=== PATIENT | female | born 1965 | race Caucasian/White ===

== ENCOUNTER 2018-09-23 23:37 | Inpatient (IN) | payer BC ==
[~2018-09-23] VITALS: Ht 157.5 cm; Wt 104.9 kg
[2018-09-24] VITALS (13 sets, daily range): BP systolic 120–140; BP diastolic 70–89
[2018-09-24] MEDS ORDERED: LEVO150T5 PO (00:01)
[2018-09-24] MEDS ORDERED: SODIUM CHLORIDE FLUSH 10ML SYR IVF ONE (00:30)
[2018-09-24 00:48] LABS: MEAN CORPUSCULAR HEMOGLOBIN 20.3 pg (27.0-34.8); MEAN CORPUSCULAR VOLUME 70.4 fL (80-100); MEAN PLATELET VOLUME 7.8 fL (7.4-10.4); PLATELET COUNT 345 x10^3/uL (130-400); RED BLOOD COUNT 2.83 x10^6/uL (3.82-5.3); RED CELL DISTRIBUTION WIDTH 20.9 % (9.6-15.2)
[2018-09-24 00:50] LABS: MEAN CORPUSCULAR HGB CONC 28.9 g/dL (32.4-35.8)
[2018-09-24 00:51] LABS: ALANINE AMINOTRANSFERASE 50 U/L (12-78); ALBUMIN 3.5 g/dL (3.4-5.0); ANION GAP 5 mmol/L (5-15); CALCIUM 8.3 mg/dL (8.5-10.1); CHLORIDE 106 mmol/L (98-107); CREATININE 0.95 mg/dL (0.55-1.02)
[2018-09-24 00:52] LABS: INTERNATIONAL NORMALIZED RATIO 1.02 (0.93-1.1); PROTHROMBIN TIME 10.7 Seconds (9.6-11.5)
[2018-09-24 00:55] LABS: ALKALINE PHOSPHATASE 105 U/L (45-117); BILIRUBIN,TOTAL 0.2 mg/dL (0.2-1.0); T4 (THYROXINE) 10.2 mcg/dL (4.8-13.9); TOTAL PROTEIN 7.2 g/dL (6.4-8.2)
[2018-09-24 01:03] LABS: MD YES
[2018-09-24 01:06] LABS: BAND#(MANUAL) 0.09 x10^3/uL; BANDS%(MANUAL) 1 % (0-7); BASOS#(MANUAL) 0.09 x10^3/uL (0-0.1); BASOS% (MANUAL) 1 % (0-1); EOS#(MANUAL) 0.36 x10^3/uL (0.0-0.4); EOS% (MANUAL) 4 % (1-7); LYMPH#(MANUAL) 2.31 x10^3/uL (1-3.4); LYMPHS% (MANUAL) 26 % (22-44); SEG#(MANUAL) 6.05 x10^3/uL (1.8-6.8); SEGS% (MANUAL) 68 % (42-75)
[2018-09-24 01:07] LABS: ANISOCYTOSIS 1+
[2018-09-24 01:08] LABS: HYPOCHROMIA 2+; MICROCYTOSIS 2+; OVALOCYTES 1+; POLYCHROMASIA 1+; STOMATOCYTES 1+
[2018-09-24 01:10] LABS: ROULEAUX 1+
--- NOTE | 2018-09-24 01:10 | NUR ---
IVs STARTED. PT AWARE OF CURRENT LABS. PT TO BE ADMITTED.
[2018-09-24 01:11] LABS: <PLATELET ESTIMATE> ADEQUATE; <PLT MORPHOLOGY> NORMAL PLT MORPH
--- NOTE | 2018-09-24 01:20 | NUR ---
PT SIGNED BLOOD CONSENT. ERP HAS EXPLAINED TO PT NEED FOR TRANSFUSION.
[2018-09-24 01:26] LABS: % IRON SATURATION 3 % (20-55); IRON LEVEL 14 mcg/dL (50-170); TOTAL IRON BINDING CAPACITY 485 mcg/dL (250-450)
--- NOTE | 2018-09-24 01:51 | NUR ---
BREAK RN: PT DENIES ANY ADVERSE SYMPTOMS AT THIS TIME. BLOOD CONTINUES TO TRANFUSE. NO FURTHER NEEDS EXPRESSED. VSS. CALL LIGHT IN REACH.
[2018-09-24] MEDS ORDERED: ONDANSETRON 2MG/ML, 2ML IVPush PRN (02:30)
[2018-09-24] MEDS ORDERED: LABETALOL 5MG/ML, 20ML IVPush PRN (02:30)
[2018-09-24] MEDS ORDERED: POLYETHYLENE GLYCOL 17 GM PACKET PO PRN (02:30)
[2018-09-24] MEDS ORDERED: ACETAMINOPHEN 325 MG TABLET PO PRN (02:30)
[2018-09-24 03:03] LABS: FREE T4 (FREE THYROXINE) 1.09 ng/dL (0.76-1.46)
[2018-09-24] MEDS ORDERED: LEVOTHYROXINE 175 MCG TABLET PO SCH (06:00)
[2018-09-24] MEDS ORDERED: OMEPRAZOLE 20 MG CAPSULE.DR PO SCH (07:30)
[2018-09-24] MEDS ORDERED: LEVO175T2 PO (11:28)
[2018-09-24] MEDS ORDERED: FERR325T18 PO (11:28)
== END 2018-09-24 14:03 | disposition home or self-care (01) | DRG 760 ==
LOC: ED 09-24 00:14 → EDIP 09-24 01:30 → 3NE 09-24 02:37 → DCLOUNGE 09-24 13:56
PROVIDERS: ADMIT Family Medicine; ATTEND Internal Medicine
PROC: 30233N1 Transfusion of Nonautologous Red Blood Cells into Peripheral Vein, Percutaneous Approach (ICD-10-PCS; principal; 2018-09-24)
DX: D25.9 Leiomyoma of uterus, unspecified (principal); Z68.41 Body mass index [BMI] 40.0-44.9, adult; D62 Acute posthemorrhagic anemia; N92.1 Excessive and frequent menstruation with irregular cycle; E03.9 Hypothyroidism, unspecified; F10.10 Alcohol abuse, uncomplicated; F17.210 Nicotine dependence, cigarettes, uncomplicated; E66.01 Morbid (severe) obesity due to excess calories; Z79.890 Hormone replacement therapy; K76.0 Fatty (change of) liver, not elsewhere classified; I10 Essential (primary) hypertension; Z82.49 Family history of ischemic heart disease and other diseases of the circulatory system; Z83.3 Family history of diabetes mellitus; Z91.14 Patient's other noncompliance with medication regimen
CPT/HCPCS: 36415; 76830; 80053; 82728; 83540; 83550; 83880; 84436; 84439; 84443; 84703; 85014; 85018; 85025; 85610; 85730; 86850; 86900; 86923; P9016